=== PATIENT | female | born 1965 | race Two or more races ===

== ENCOUNTER 2019-02-03 21:08 | Emergency (ER) | payer MEDICAID, OTHER ==
[~2019-02-03] VITALS: Ht 144.8 cm; Wt 57.2 kg
--- NOTE | 2019-02-03 21:28 | NUR ---
Pt presents to ed c/o decreased appetite last 3 days w/ r flank pain. denies further gu s/s. +n,-v. Lozano present "she feels a lot of pressure behind her eyes." Hx of brain aneurysm in past, per report. Pt states L arm and L leg numbness past 2 weeks, but neuro otherwise appears fully intact in ed. Monitoring applied. Call light within reach. Pa at bedside.
[2019-02-03] MEDS ORDERED: ONDANSETRON ODT 4 MG PO ONE (22:00)
[2019-02-03] MEDS ORDERED: SODIUM CHLORIDE FLUSH 10ML SYR IVF ONE (22:00)
[2019-02-03] MEDS ORDERED: ONDANSETRON ODT 4 MG ONE (22:04)
[2019-02-03 22:13] LABS: BASOPHILS # (AUTO) 0.03 x10^3/uL (0-0.1); BASOPHILS % (AUTO) 0 % (0-1); EOSINOPHILS # (AUTO) 0.11 x10^3/uL (0-0.4); EOSINOPHILS % (AUTO) 2 % (1-7); LYMPHOCYTES # (AUTO) 3.14 x10^3/uL (1-3.4); LYMPHOCYTES % (AUTO) 47 % (22-44); MD NO; MEAN CORPUSCULAR HEMOGLOBIN 28.4 pg (27.0-34.8); MEAN CORPUSCULAR HGB CONC 33.2 g/dL (32.4-35.8); MEAN CORPUSCULAR VOLUME 85.4 fL (80-100); MEAN PLATELET VOLUME 8.2 fL (7.4-10.4); MONOCYTES # (AUTO) 0.48 x10^3/uL (0.2-0.8); MONOCYTES % (AUTO) 7 % (2-9); NEUTROPHILS # (AUTO) 2.97 x10^3/uL (1.8-6.8); NEUTROPHILS % (AUTO) 44 % (42-75); PLATELET COUNT 349 x10^3/uL (130-400); RED CELL DISTRIBUTION WIDTH 12.4 % (9.6-15.2)
[2019-02-03 22:16] LABS: ALBUMIN 3.8 g/dL (3.4-5.0); ANION GAP 6 mmol/L (5-15); CALCIUM 8.6 mg/dL (8.5-10.1); CHLORIDE 108 mmol/L (98-107)
[2019-02-03 22:18] LABS: MICROSCOPIC AUTO
[2019-02-03 22:20] LABS: CULTURE INDICATED? YES
[2019-02-03 22:22] LABS: ALANINE AMINOTRANSFERASE 34 U/L (12-78); ALKALINE PHOSPHATASE 40 U/L (45-117); BILIRUBIN,TOTAL 0.8 mg/dL (0.2-1.0); CREATININE 0.59 mg/dL (0.55-1.02); TOTAL PROTEIN 7.6 g/dL (6.4-8.2); TROPONIN I < 0.015 ng/mL (0.000-0.045)
[2019-02-03 22:28] VITALS: BP 148/102
--- NOTE | 2019-02-03 22:28 | NUR ---
Awaiting Ct at this time. No immediate needs from pt.
--- NOTE | 2019-02-03 22:44 | NUR ---
Pt to ct.
[2019-02-03] MEDS ORDERED: OMNIPAQUE 350 MG/ML, 100ML BOTTLE ONE (22:51)
== END 2019-02-04 00:05 | disposition home or self-care (01) ==
LOC: ED 22:19
DX: N30.00 Acute cystitis without hematuria (principal); I10 Essential (primary) hypertension; R10.32 Left lower quadrant pain; R10.31 Right lower quadrant pain; R42 Dizziness and giddiness; E78.5 Hyperlipidemia, unspecified
CPT/HCPCS: 36415; 70450; 74177; 80053; 81001; 83690; 84484; 85025; 87086; 93005; 99284; Q0162; Q9967